=== PATIENT | male | born 1995 ===

== ENCOUNTER 2018-08-24 20:41 | Emergency (ER) | payer BC ==
[~2018-08-24] VITALS: Ht 182.9 cm; Wt 94.0 kg
[2018-08-24 20:54] VITALS: BP 140/101
[2018-08-24] MEDS ORDERED: LIDO20SO16 PO (21:44)
== END 2018-08-24 21:47 | disposition home or self-care (01) ==
LOC: ER 20:42
DX: J06.9 Acute upper respiratory infection, unspecified (principal)
CPT/HCPCS: 87081; 87880; 99283